=== PATIENT | female | born 1970 | race Asian ===

== ENCOUNTER 2024-01-19 19:29 | Emergency (ER) | payer BC ==
[~2024-01-19] VITALS: Ht 170.2 cm; Wt 72.6 kg
[2024-01-19 19:29] VITALS: TEMP 98.1
[~2024-01-19 19:29] MED LIST: LEVO50TA PO
[2024-01-19 20:24] LABS: APPEARANCE,URINE CLEAR (CLEAR); BILIRUBIN,URINE NEGATIVE (NEGATIVE); BLOOD, URINE NEGATIVE Ery/uL (NEGATIVE); COLOR,URINE YELLOW (YELLOW); KETONES,URINE NEGATIVE (NEGATIVE); LEUKOCYTE ESTERASE ,URINE TRACE (NEGATIVE); NITRITE, URINE NEGATIVE (NEGATIVE); PROTEIN,URINE NEGATIVE (NEGATIVE); UGLUCOSE 1+ mg/dL (NEGATIVE); UROBILINOGEN,URINE 0.2 EU/dL (0.2)
[2024-01-19] MEDS ORDERED: NITR100C6 PO (20:25)
[2024-01-19] MEDS ORDERED: NITROFURANTOIN/MONOHYDRATE MACROCRYSTALS 100 MG CAPSULE ONE (20:27)
[2024-01-19 20:28] LABS: ADD URINE CULTURE YES; BACTERIA,URINE 1+ /HPF (None Seen); RBC,URINE 0-2 /HPF (0-2); YEAST,URINE Few /HPF (None Seen)
[2024-01-19] MEDS: NITROFURANTOIN/MONOHYDRATE MACROCRYSTALS 100 MG CAPSULE PO ONE (20:31)
[2024-01-19 20:32] VITALS: BP 118/74; O2SAT 99
== END 2024-01-19 20:32 | disposition home or self-care (01) ==
LOC: ER 19:33
DX: N39.0 Urinary tract infection, site not specified (principal); Z79.890 Hormone replacement therapy; Z88.5 Allergy status to narcotic agent
CPT/HCPCS: 81001; 87086-TC